=== PATIENT | male | born 1955 | race Caucasian/White ===

== ENCOUNTER 2017-06-23 03:10 | Observation (INO) | payer OTHER ==
[~2017-06-23] VITALS: Ht 193 cm; Wt 108.6 kg
[~2017-06-23 03:10] MED LIST: ACETAMINOPHN-T1 EACH PO; ATACAND32 MG PO; DEPAKOTE500 MG PO; IMITREX100 MG PO; LIPITOR20 MG PO; LOW DOSE ASPIRI81 M2 PO; NAMENDA10 MG PO; NAPROSYN500 MG PO
[2017-06-23 03:38] LABS: HEMATOCRIT 40.7 % (38.0-50.0); MCH 32.3 PG (29.0-34.0); MCHC 34.4 G/DL (30.0-36.0); MCV 93.8 FL (86-99); MEAN PLAT.VOLUME 10.3 uM^3 (9.0-12.4); PLATELET COUNT 252 K/uL (156-360); RBC DIS.WIDTH-CV 12.7 % (11.8-14.6); RBC DIS.WIDTH-SD 43.9 % (39-53); RED BLOOD COUNT 4.34 M/uL (4.00-5.50); WHITE BLOOD COUNT 12.3 K/uL (4.1-10.2)
[2017-06-23 03:54] LABS: CHLORIDE 102 mEq/L (99-109); POTASSIUM 4.5 mEq/L (3.7-5.4); SODIUM 139 mEq/L (136-147)
[2017-06-23 03:55] LABS: GLUCOSE 106 mg/dL (70-99)
[2017-06-23 03:57] LABS: ANION GAP 10 MEQ/L (2-14)
[2017-06-23 03:59] LABS: GFR ESTIMATE (CALCULATED) > 59 mL/min/ (58.99-99999)
[2017-06-23 04:00] LABS: UREA NITROGEN (BUN) 15 mg/dL (9-23)
[2017-06-23 04:10] LABS: TROP-I INTERPRETATION NEGATIVE; TROPONIN-I < 0.01 ng/mL (0.0-0.30)
[2017-06-23] MEDS ORDERED: CLOTRIMAZOLE-BE15 GM TP (07:54)
[2017-06-23] MEDS ORDERED: ERYTHROMYC1 APPLICAT BOTH EYES (07:54)
[2017-06-23 08:15] VITALS: BP 128/88
[2017-06-23 10:19] LABS: TROP-I INTERPRETATION NEGATIVE; TROPONIN-I < 0.01 ng/mL (0.0-0.30)
[2017-06-23 10:24] LABS: HDL CHOLESTEROL 25 MG/DL (Desirable>=40); LDL CHOLESTEROL 141 mg/dL (Desirable<100); NON-HDL CHOLESTEROL 175 mg/dL (Desirable<160); TOTAL CHOLESTEROL 200 mg/dL (Desirable<200); TRIGLYCERIDES 168 MG/DL (Normal: <150)
[2017-06-23] MEDS ORDERED: ATORVASTATIN CA40 MG PO (10:57)
[2017-06-23 12:38] VITALS: BP 97/71
[2017-06-23 16:53] LABS: TROP-I INTERPRETATION NEGATIVE; TROPONIN-I < 0.01 ng/mL (0.0-0.30)
[2017-06-23 17:22] VITALS: BP 101/69
== END 2017-06-23 17:56 | disposition home or self-care (01) ==
LOC: EME 03:10 → EDOF 06:16 → ENRESERV 06:18 → 5WEST 08:47
PROVIDERS: Physician Assistant
DX: R07.9 Chest pain, unspecified (principal); G43.909 Migraine, unspecified, not intractable, without status migrainosus; D72.829 Elevated white blood cell count, unspecified; E78.5 Hyperlipidemia, unspecified; H10.9 Unspecified conjunctivitis; I65.23 Occlusion and stenosis of bilateral carotid arteries; F17.210 Nicotine dependence, cigarettes, uncomplicated; G47.33 Obstructive sleep apnea (adult) (pediatric); Z83.3 Family history of diabetes mellitus; Z82.49 Family history of ischemic heart disease and other diseases of the circulatory system; Z83.49 Family history of other endocrine, nutritional and metabolic diseases; Z79.82 Long term (current) use of aspirin
CPT/HCPCS: 71020; 73000; 80048; 80061; 81003; 84484; 85027; 93005; 93306; 93880; 99281; 99285; G0378

== ENCOUNTER 2017-08-09 22:07 | Inpatient (IN) | payer OTHER ==
[~2017-08-09] VITALS: Ht 193 cm; Wt 108.8 kg
[~2017-08-09 22:07] MED LIST changes: +ATORVASTATIN CA40 MG PO; +CLOTRIMAZOLE-BE15 GM TP; +ERYTHROMYC1 APPLICAT BOTH EYES; +LIPITOR40 MG PO; +LOTRISONE15 GM TP
[2017-08-10 07:35] VITALS: BP 137/88
[2017-08-11] MEDS ORDERED: ASPIRIN EC325 MG PO (08:21)
[2017-08-11] MEDS ORDERED: ENDOCET 5-3251 EACH PO (08:23)
== END 2017-08-11 14:50 | disposition home or self-care (01) | DRG 39 ==
LOC: CANRESERV 22:07 → ENRESERV 22:07 → 2SOUTH 08-10 06:58
DX: I65.21 Occlusion and stenosis of right carotid artery (principal); K21.9 Gastro-esophageal reflux disease without esophagitis; I10 Essential (primary) hypertension; E78.00 Pure hypercholesterolemia, unspecified; F17.200 Nicotine dependence, unspecified, uncomplicated; Z79.82 Long term (current) use of aspirin
CPT/HCPCS: 88305; 95955; C1768; J0131; J0330; J0690; J1100; J1170; J1644; J2370; J2405; J2710; J3010; J7040; J7050; J7120